=== PATIENT | female | born 1970 | race Caucasian/White ===

== ENCOUNTER 2018-07-17 19:00 | Emergency (ER) | payer MEDICAID ==
[2018-07-17 19:01] VITALS: BMI 37.1
[2018-07-17 19:20] VITALS: TEMP 98.3; O2SAT 100
[2018-07-17] MEDS ORDERED: Sodium Chloride 0.9% 1,000 ML IV STA (19:26)
[2018-07-17 20:32] LABS: BASO # 0.02 K/mm3 (0.0-2.0); BASO % 0.2 % (0.0-3.0); EOS # 0.3 (0.0-0.7); EOS % 2.2 % (1.5-5.0); HEMOGLOBIN 12.1 g/dL (12.0-16.0); LYMPH # 3.2 (1.2-3.4); LYMPH % 28.5 % (22.0-35.0); MEAN CELL VOLUME 88.8 fl (80.0-105.0); MEAN CORPUSCULAR HEMOGLOBIN 28.2 pg (25.0-35.0); MEAN CORPUSCULAR HGB CONC 31.8 g/dl (31.0-37.0); MEAN PLATELET VOLUME 10.2 fl (7.0-11.0); MONO # 0.5 (0.1-0.6); MONO % 4.7 % (1.0-6.0); RBC 4.29 10^6/uL (3.5-6.1); RED CELL DISTRIBUTION WIDTH 14.5 % (11.5-14.5); WHITE BLOOD COUNT 11.2 10^3/uL (4.5-11.0)
[2018-07-17 20:34] LABS: ALB/GLOB RATIO 1.1 (1.1-1.8); ALBUMIN 3.8 g/dL (3.0-4.8); ALT/SGPT 17 U/L (7-56); AST/SGOT 27 U/L (14-36); BLOOD UREA NITROGEN 14 mg/dL (7-21); CALCIUM 9.1 mg/dL (8.4-10.5); GFR NON-AFRICAN AMERICAN > 60
[2018-07-17 20:45] LABS: TROPONIN I < 0.01 ng/mL
--- NOTE | 2018-07-17 20:55 | ED PDOC ---
Arrival/HPI - General Chief Complaint: Substance Abuse Historian: Patient - History of Present Illness Narrative History of Present Illness (Text): 07/17/18 21:21 47 year old female, with a past medical history of hypertension, who presents to the emergency department complaining of dizziness and lightheadedness s/p inhaling marijuana using vapor and eating marijuana brownies earlier today. Patient denies any headache, fevers, chills, shortness of breath, nausea, vomiting, chest pain, abdominal pain, or any other drug abuse. Time/Duration: 24 hours Symptom Onset: Gradual Symptom Course: Unchanged Activities at Onset: Light Context: Home Past Medical History - Provider Review Nursing Documentation Reviewed: Yes - Past History Past History: No Previous - Infectious Disease Hx of Infectious Diseases: None - Tetanus Immunization Tetanus Immunization: Up to Date, Unknown - Past Medical History Past Medical History: No Previous - Cardiac Hx Hypertension: Yes - Psychiatric Hx Depression: No Hx Substance Use: No - Surgical History Hx Appendectomy: Yes Hx Hysterectomy: Yes - Anesthesia Hx Anesthesia: Yes Hx Anesthesia Reactions: No Hx Malignant Hyperthermia: No - Suicidal Assessment Feels Threatened In Home Enviroment: No Family/Social History - Physician Review Nursing Documentation Reviewed: Yes Family/Social History: Unknown Family HX Smoking Status: Heavy Smoker > 10 Cigarettes Daily Hx Alcohol Use: No Hx Substance Use: No Hx Substance Use Treatment: No Allergies/Home Meds Allergies/Adverse Reactions: Allergies No Known Allergies Allergy (Verified 10/26/14 23:02) Home Medications: Home Meds Medication Instructions Recorded Confirmed Losartan Potassium 25 mg PO DAILY 09/09/16 09/09/16 Review of Systems - Physician Review All systems were reviewed & negative as marked: Yes - Review of Systems Constitutional: absent: Fevers Respiratory: absent: SOB Cardiovascular: absent: Chest Pain Gastrointestinal: absent: Abdominal Pain, Nausea, Vomiting Musculoskeletal: absent: Back Pain, Neck Pain Skin: absent: Rash Neurological: Dizziness. absent: Headache Physical Exam Vital Signs Temp Pulse Resp BP Pulse Ox 07/17/18 19:01 98.3 F 128 H 18 162/82 H 100 Temperature: Afebrile Blood Pressure: Hypertensive Pulse: Tachycardic Respiratory Rate: Normal Appearance: Positive for: Well-Appearing, Non-Toxic, Comfortable Pain Distress: None Mental Status: Positive for: Alert and Oriented X 3 - Systems Exam Head: Present: Atraumatic, Normocephalic Pupils: Present: PERRL Extroacular Muscles: Present: EOMI Conjunctiva: Present: Normal Mouth: Present: Moist Mucous Membranes Neck: Present: Normal Range of Motion Respiratory/Chest: Present: Clear to Auscultation, Good Air Exchange. No: Respiratory Distress, Accessory Muscle Use Cardiovascular: Present: Regular Rate and Rhythm, Normal S1, S2. No: Murmurs Abdomen: No: Tenderness, Distention, Peritoneal Signs Back: Present: Normal Inspection Upper Extremity: Present: Normal Inspection. No: Cyanosis, Edema Lower Extremity: Present: Normal Inspection. No: Edema Neurological: Present: GCS=15, Speech Normal Skin: Present: Warm, Dry, Normal Color. No: Rashes Psychiatric: Present: Alert, Oriented x 3, Normal Insight, Normal Concentration Medical Decision Making ED Course and Treatment: 07/17/18 20:53 Impression: 47 year old female presents to the Emergency department complaining of dizziness and lightheadedness s/p inhaling marijuana using vapor and eating marijuana brownies earlier today. Differential Diagnosis included but are not limited to: Plan: -- EKG -- Basic labs -- IV fluids -- Ativan -- Reassess and disposition Prior Visits: Notes and results from previous visits were reviewed. Progress Notes: EKG reviewed, shows: NSR at 127 07/17/18 23:17 Patient reports feeling better after treatment. - Lab Interpretations Lab Results: Troponin I < 0.01 ng/mL 07/17/18 20:17 Total Bilirubin 0.2 mg/dL (0.2-1.3) 07/17/18 20:17 AST 27 U/L (14-36) 07/17/18 20:17 ALT 17 U/L (7-56) 07/17/18 20:17 Alkaline Phosphatase 68 U/L (38-126) 07/17/18 20:17 Total Protein 7.4 g/dL (5.8-8.3) 07/17/18 20:17 Albumin 3.8 g/dL (3.0-4.8) 07/17/18 20:17 Globulin 3.6 gm/dL 07/17/18 20:17 Albumin/Globulin Ratio 1.1 (1.1-1.8) 07/17/18 20:17 - Medication Orders Current Medication Orders: Discontinued Medications Sodium Chloride (Sodium Chloride 0.9%) 1,000 mls @ 999 mls/hr IV .Q1H1M STA Stop: 07/17/18 20:26 Last Admin: 07/17/18 19:59 Dose: 999 mls/hr eMAR Start Stop Document 07/17/18 19:59 OCS (Rec: 07/17/18 20:00 OCS [facility] [place]-ER-20) Intravenous Solution Start Date 07/17/18 Start Time 19:59 End Date 07/17/18 End time 21:00 Total Infusion Time 61 Lorazepam (Ativan) 1 mg IVP STAT STA; Protocol Stop: 07/17/18 19:27 Last Admin: 07/17/18 20:00 Dose: 1 mg IVP Administration Document 07/17/18 20:00 OCS (Rec: 07/17/18 20:00 OCS [facility] [place]-[facility]-20) Charges for Administration # of IVP Administrations 1 - Scribe Statement The provider has reviewed the documentation as recorded by the Scribe Chip Mccartney All medical record entries made by the Scribe were at my direction and personally dictated by me. I have reviewed the chart and agree that the record accurately reflects my personal performance of the history, physical exam, medical decision making, and the department course for this patient. I have also personally directed, reviewed, and agree with the discharge instructions and disposition. Disposition/Present on Arrival - Present on Arrival Any Indicators Present on Arrival: No History of DVT/PE: No History of Uncontrolled Diabetes: No Urinary Catheter: No History of Decub. Ulcer: No History Surgical Site Infection Following: None - Disposition Have Diagnosis and Disposition been Completed?: Yes Diagnosis: Drug use Disposition: HOME/ ROUTINE Disposition Time: 21:20 Condition: IMPROVED Discharge Instructions (ExitCare): Marijuana Additional Instructions: JONATHAN BENAVIDEZ, thank you for letting us take care of you today. The emergency medical care you received today was directed at your acute symptoms. If you were prescribed any medication, please fill it and take as directed. It may take s everal days for your symptoms to resolve. Return to the Emergency Department if your symptoms worsen, do not improve, or if you have any other problems. Please contact your doctor or call one of the physicians/clinics you have been referred to that are listed on the Patient Visit Information form that is included in your discharge packet. Bring any paperwork you were given at discharge with you along with any medications you are taking to your follow up visit. Our treatment cannot replace ongoing medical care by a primary care provider outside of the emergency department. Thank you for allowing the [facility] team to be part of your care today. Follow up with your primary care doctor this week for re-evaluation and further management. Referrals: [facility], [Non-Staff] - Follow up with primary Forms: [employer] (Sinhala)
[2018-07-17 21:42] VITALS: BP 146/88; PULSE 98; RESP 19
--- NOTE | 2018-07-18 21:14 | CARD ---
APPROVED REPORT Date of service: 07/17/2018 EKG Measurement Heart [id number] <Conclusion> Sinus tachycardia ST & T wave abnormality, consider lateral ischemia Abnormal ECG
== END 2018-07-17 21:39 | disposition home or self-care (01) ==
LOC: ED 19:00
DX: F12.90 Cannabis use, unspecified, uncomplicated (principal); I10 Essential (primary) hypertension; F17.210 Nicotine dependence, cigarettes, uncomplicated
CPT/HCPCS: 80053; 81025; 82550; 83615; 83735; 84484; 85025; 93005; 96361; 96374; 99283; J2060; J7030